=== PATIENT | female | born 1980 | race Caucasian/White ===

== ENCOUNTER 2017-06-08 00:41 | Inpatient (IN) | payer MEDICAID ==
[~2017-06-08] VITALS: Ht 170.2 cm; Wt 80.7 kg
[2017-06-08 01:08] LABS: BASOPHILS # (AUTO) 0.04 K/uL (0.00-0.20); BASOPHILS % (AUTO) 0.6 % (0.0-2.0); EOSINOPHILS # (AUTO) 0.06 K/uL (0.00-0.70); EOSINOPHILS % (AUTO) 0.87 % (1.0-6.0); HEMATOCRIT 35.3 % (36-46); LYMPHOCYTES # (AUTO) 2.4 K/uL (1.0-4.8); LYMPHOCYTES % (AUTO) 36.4 % (22.0-44.0); MEAN CORPUSCULAR HEMOGLOBIN 31.8 pg (26.0-34.0); MEAN CORPUSCULAR HGB CONC 33.9 G/dL (31.0-37.0); MEAN CORPUSCULAR VOLUME 94 fL (80-100); MONOCYTES # (AUTO) 0.4 K/uL (0.1-1.0); MONOCYTES % (AUTO) 6.6 % (2.0-9.0); NEUTROPHILS # (AUTO) 3.6 K/uL (1.8-7.7); NEUTROPHILS % (AUTO) 55.6 % (40.0-70.0); PLATELET COUNT (AUTO) 200 K/uL (150-450); RED BLOOD CELL COUNT(AUTO) 3.76 MIL/uL (4.00-5.20); RED CELL DISTRIBUTION WIDTH 12.8 % (11.5-14.5); WHITE BLOOD COUNT (AUTO) 6.5 K/uL (4.5-11.0)
[2017-06-08 01:19] LABS: ANION GAP 8 mmol/L (8-16); CALCIUM, TOTAL 8.5 mg/dL (8.8-10.5); CARBON DIOXIDE 29 mmol/L (22-29); CHLORIDE 105 mmol/L (98-107); CREATININE 0.71 mg/dL (0.60-1.30); GLOMERULAR FILTR. RATE CALC > 60 mL/min (>60); POTASSIUM 3.2 mmol/L (3.5-5.1); SODIUM SERUM 142 mmol/L (136-145); UREA NITROGEN, BLOOD 9 mg/dL (7-18)
[2017-06-08 01:27] LABS: ALANINE AMINOTRANSFERASE 33 U/L (12-78); ALBUMIN 3.4 g/dL (3.4-5.0); ASPARTATE AMINOTRANSFERASE 25 U/L (15-37); BILIRUBIN,TOTAL 0.4 mg/dL (0.1-1.0); TOTAL PROTEIN, SERUM 6.7 g/dL (6.4-8.2)
[2017-06-08] MEDS ORDERED: HALOPERIDOL LACTATE 5 MG/ML VIAL IM ONE (01:45)
[2017-06-08] MEDS ORDERED: DiphenhydrAMINE HCL 50 MG/ML VIAL IM ONE (01:45)
[2017-06-08] MEDS ORDERED: LORazepam 2 MG/ML VIAL IM ONE (01:45)
[2017-06-08] MEDS: POTASSIUM CHLORIDE 10% 40 MEQ/30 ML LIQUID UDCUP PO ONE ×2 (04:33→04:51)
[2017-06-08] MEDS ORDERED: INFLUENZA VIRUS VACCINE QVS 2017-18 (3YR+)/PF 60 MCG/0.5 ML SYRINGE IM ONE (06:15)
[2017-06-08 06:19] VITALS: BP 108/68
[2017-06-08] MEDS: LORazepam 2 MG TABLET PO PRN (08:36)
[2017-06-08] MEDS: HALOPERIDOL 5 MG TABLET PO PRN (08:36)
[2017-06-08 09:37] VITALS: BP 110/75
[2017-06-08] MEDS ORDERED: HALO5 PO (15:11)
[2017-06-08] MEDS ORDERED: IBUP-1506 PO (15:11)
[2017-06-08] MEDS ORDERED: LORA2TAB2 PO (15:11)
[2017-06-08] MEDS ORDERED: IBUPROFEN 400 MG TABLET PO PRN (15:15)
[2017-06-08] MEDS ORDERED: ACETAMINOPHEN 325 MG TABLET PO PRN (15:15)
[2017-06-08 20:27] VITALS: BP 101/60
[2017-06-09 05:56] VITALS: BP 112/63
[2017-06-09 08:41] VITALS: BP 125/78
[2017-06-09] MEDS: VENLAFAXINE HCL 75 MG ER CAPSULE PO SCH (08:41)
[2017-06-09] MEDS: CEPHALEXIN MONOHYDRATE 500 MG CAPSULE PO SCH ×4 (08:41→21:00)
[2017-06-09] MEDS: LORazepam 2 MG TABLET PO PRN ×2 (08:41→16:23)
[2017-06-09] MEDS: HALOPERIDOL 5 MG TABLET PO PRN (16:23)
[2017-06-09 16:45] VITALS: BP 126/67
[2017-06-10 06:43] VITALS: BP 130/96
[2017-06-10 08:26] VITALS: BP 107/60
[2017-06-10] MEDS: VENLAFAXINE HCL 75 MG ER CAPSULE PO SCH (09:12)
[2017-06-10] MEDS: CEPHALEXIN MONOHYDRATE 500 MG CAPSULE PO SCH ×4 (09:12→21:32)
[2017-06-10 16:41] VITALS: BP 132/76
[2017-06-10] MEDS: HALOPERIDOL 5 MG TABLET PO PRN (17:08)
[2017-06-10] MEDS: LORazepam 2 MG TABLET PO PRN (17:08)
[2017-06-10] MEDS: ZOLPIDEM TARTRATE 10 MG TABLET PO PRN (21:32)
[2017-06-11 06:43] VITALS: BP 126/85
[2017-06-11 08:28] VITALS: BP 103/59
[2017-06-11] MEDS: VENLAFAXINE HCL 75 MG ER CAPSULE PO SCH (09:31)
[2017-06-11] MEDS: CEPHALEXIN MONOHYDRATE 500 MG CAPSULE PO SCH ×4 (09:31→20:27)
[2017-06-11 12:30] VITALS: BP 126/73
[2017-06-11] MEDS: LORazepam 2 MG TABLET PO PRN ×2 (12:37→16:58)
[2017-06-11 16:38] VITALS: BP 122/66
[2017-06-11] MEDS: ZOLPIDEM TARTRATE 10 MG TABLET PO PRN (21:06)
[2017-06-12 04:37] VITALS: BP 121/78
[2017-06-12] MEDS: LORazepam 2 MG TABLET PO PRN ×2 (04:38→10:38)
[2017-06-12] MEDS: CEPHALEXIN MONOHYDRATE 500 MG CAPSULE PO SCH ×2 (08:41→12:26)
[2017-06-12] MEDS: VENLAFAXINE HCL 75 MG ER CAPSULE PO SCH (08:41)
[2017-06-12 08:58] VITALS: BP 119/63
[2017-06-12] MEDS ORDERED: CEPH500 PO (10:28)
[2017-06-12] MEDS ORDERED: VENL-67 PO (10:28)
[2017-06-12] MEDS: HALOPERIDOL 5 MG TABLET PO PRN (11:48)
== END 2017-06-12 13:30 | disposition home or self-care (01) | DRG 751 ==
LOC: EMS 00:43 → EDBD 00:43 → B3A 03:35
PROVIDERS: ADMIT Psychiatry & Neurology Psychiatry; ATTEND Psychiatry & Neurology Psychiatry
DX: F32.2 Major depressive disorder, single episode, severe without psychotic features (principal); R45.851 Suicidal ideations; E87.6 Hypokalemia; Z28.21 Immunization not carried out because of patient refusal; F17.200 Nicotine dependence, unspecified, uncomplicated; Z59.0 Homelessness; Z79.899 Other long term (current) drug therapy; Z71.51 Drug abuse counseling and surveillance of drug abuser; Z71.6 Tobacco abuse counseling; F19.10 Other psychoactive substance abuse, uncomplicated
CPT/HCPCS: 90471; 96372; 99291; G0480; J1200; J1630; J2060

== ENCOUNTER 2017-06-08 14:51 | Emergency (ER) | payer MEDICAID ==
[~2017-06-08] VITALS: Ht 175.3 cm; Wt 59.1 kg
[2017-06-08] MEDS ORDERED: IBUP-1506 PO (15:11)
[2017-06-08] MEDS ORDERED: HALO5 PO (15:11)
[2017-06-08] MEDS ORDERED: LORA2TAB2 PO (15:11)
[2017-06-08] MEDS ORDERED: BACITRACIN 0.9 GM PACKET OINTMENT TP ONE (17:30)
[2017-06-08 19:10] VITALS: BP 118/68
== END 2017-06-08 19:57 | disposition other institution (70) ==
LOC: EMS 14:56
DX: S01.01XA Laceration without foreign body of scalp, initial encounter (principal); F16.90 Hallucinogen use, unspecified, uncomplicated; F17.210 Nicotine dependence, cigarettes, uncomplicated; L08.9 Local infection of the skin and subcutaneous tissue, unspecified; X58.XXXA Exposure to other specified factors, initial encounter; Y93.89 Activity, other specified; Y92.89 Other specified places as the place of occurrence of the external cause; Y99.8 Other external cause status
CPT/HCPCS: 70450; 96372; 99285; J0690

== ENCOUNTER 2017-07-24 06:56 | Emergency (ER) | payer MEDICAID ==
[~2017-07-24] VITALS: Ht 175.3 cm; Wt 100.9 kg
[~2017-07-24 06:56] MED LIST: CEPH500 PO; VENL-67 PO
[2017-07-24] MEDS ORDERED: VITAD1000 PO (07:04)
[2017-07-24 07:45] LABS: BASOPHILS % (AUTO) 0.4 % (0.0-2.0); EOSINOPHILS % (AUTO) 0.9 % (1.0-6.0); HEMATOCRIT 34.8 % (36-46); HEMOGLOBIN 12.1 g/dL (12.0-16.0); LYMPHOCYTES % (AUTO) 24.7 % (22.0-44.0); MEAN CORPUSCULAR HEMOGLOBIN 32.1 pg (26.0-34.0); MEAN CORPUSCULAR HGB CONC 34.9 G/dL (31.0-37.0); MEAN CORPUSCULAR VOLUME 92 fL (80-100); MONOCYTES # (AUTO) 0.5 K/uL (0.1-1.0); MONOCYTES % (AUTO) 6.2 % (2.0-9.0); NEUTROPHILS # (AUTO) 5.4 K/uL (1.8-7.7); NEUTROPHILS % (AUTO) 67.8 % (40.0-70.0); PLATELET COUNT (AUTO) 259 K/uL (150-450); RED BLOOD CELL COUNT(AUTO) 3.77 MIL/uL (4.00-5.20); RED CELL DISTRIBUTION WIDTH 12.8 % (11.5-14.5)
[2017-07-24 07:55] LABS: ANION GAP 7 mmol/L (8-16); CALCIUM, TOTAL 8.9 mg/dL (8.8-10.5); CARBON DIOXIDE 29 mmol/L (22-29); CHLORIDE 105 mmol/L (98-107); CREATININE 0.63 mg/dL (0.60-1.30); GLOMERULAR FILTR. RATE CALC > 60 mL/min (>60); POTASSIUM 3.7 mmol/L (3.5-5.1); SODIUM SERUM 141 mmol/L (136-145); UREA NITROGEN, BLOOD 10 mg/dL (7-18)
[2017-07-24 08:00] LABS: ALANINE AMINOTRANSFERASE 48 U/L (12-78); ALBUMIN 3.5 g/dL (3.4-5.0); ASPARTATE AMINOTRANSFERASE 28 U/L (15-37); BILIRUBIN,TOTAL 0.4 mg/dL (0.1-1.0)
[2017-07-24 09:16] VITALS: BP 123/89
== END 2017-07-24 09:19 | disposition home or self-care (01) ==
LOC: EMS 06:57
DX: F25.9 Schizoaffective disorder, unspecified (principal); R10.84 Generalized abdominal pain; J40 Bronchitis, not specified as acute or chronic; R74.8 Abnormal levels of other serum enzymes; F17.210 Nicotine dependence, cigarettes, uncomplicated; Z71.6 Tobacco abuse counseling; Z59.0 Homelessness; Z79.899 Other long term (current) drug therapy
CPT/HCPCS: 36415; 71010; 80053; 83690; 84703; 85025; 99285; 99406; G0480

== ENCOUNTER 2017-10-07 19:47 | Inpatient (IN) | payer MEDICAID ==
[~2017-10-07] VITALS: Ht 172.7 cm; Wt 81.8 kg
[~2017-10-07 19:47] MED LIST changes: -CEPH500 PO; +VITAD1000 PO
[2017-10-07 20:19] LABS: BASOPHILS % (AUTO) 0.5 % (0.0-2.0); EOSINOPHILS % (AUTO) 0.8 % (1.0-6.0); HEMATOCRIT 40.5 % (36-46); HEMOGLOBIN 13.5 g/dL (12.0-16.0); LYMPHOCYTES # (AUTO) 1.2 K/uL (1.0-4.8); LYMPHOCYTES % (AUTO) 15.9 % (22.0-44.0); MEAN CORPUSCULAR HEMOGLOBIN 31.2 pg (26.0-34.0); MEAN CORPUSCULAR HGB CONC 33.2 G/dL (31.0-37.0); MEAN CORPUSCULAR VOLUME 94 fL (80-100); MONOCYTES # (AUTO) 0.6 K/uL (0.1-1.0); MONOCYTES % (AUTO) 7.1 % (2.0-9.0); NEUTROPHILS # (AUTO) 5.9 K/uL (1.8-7.7); NEUTROPHILS % (AUTO) 75.7 % (40.0-70.0); PLATELET COUNT (AUTO) 236 K/uL (150-450); RED BLOOD CELL COUNT(AUTO) 4.32 MIL/uL (4.00-5.20); RED CELL DISTRIBUTION WIDTH 12.8 % (11.5-14.5)
[2017-10-07 20:32] LABS: ANION GAP 10 mmol/L (8-16); CALCIUM, TOTAL 8.7 mg/dL (8.8-10.5); CARBON DIOXIDE 29 mmol/L (22-29); CHLORIDE 104 mmol/L (98-107); CREATININE 0.74 mg/dL (0.60-1.30); GLOMERULAR FILTR. RATE CALC > 60 mL/min (>60); GLUCOSE,RANDOM 157 mg/dL (70-110); POTASSIUM 3.4 mmol/L (3.5-5.1); SODIUM SERUM 143 mmol/L (136-145); UREA NITROGEN, BLOOD 12 mg/dL (7-18)
[2017-10-07 20:39] LABS: ALANINE AMINOTRANSFERASE 26 U/L (12-78); ALBUMIN 3.1 g/dL (3.4-5.0); ALKALINE PHOSPHATASE 93 U/L (46-116); ASPARTATE AMINOTRANSFERASE 16 U/L (15-37); BILIRUBIN,TOTAL 0.4 mg/dL (0.1-1.0); TOTAL PROTEIN, SERUM 6.8 g/dL (6.4-8.2)
[2017-10-08] MEDS ORDERED: ZOLPIDEM TARTRATE 10 MG TABLET PO PRN (03:15)
[2017-10-08] MEDS ORDERED: HALOPERIDOL LACTATE 5 MG/ML VIAL IM ONE (03:30)
[2017-10-08] MEDS ORDERED: LORazepam 2 MG/ML VIAL IM ONE (03:30)
[2017-10-08] MEDS ORDERED: DiphenhydrAMINE HCL 50 MG/ML VIAL IM ONE (03:30)
[2017-10-08 03:41] LABS: CHOL/HDL RATIO 3.1 (3.9-5.7); CHOLESTEROL 154 mg/dL (131-200); HDL CHOLESTEROL 50 mg/dL (40-60); LDL CHOL (CALC.) 89 mg/dL (0-130); THYROID STIMULATING HORMONE 0.39 uIU/mL (0.36-3.74); TRIGLYCERIDES 77 mg/dL (15-150)
[2017-10-08 05:47] VITALS: BP 104/60
[2017-10-08] MEDS ORDERED: INFLUENZA VIRUS VACCINE QVS 2017-18 (3YR+)/PF 60 MCG/0.5 ML SYRINGE IM ONE (06:00)
[2017-10-08] MEDS ORDERED: BENZOCAINE/MENTHOL LOZENGE MM PRN (10:45)
[2017-10-08] MEDS ORDERED: PETROLATUM,WHITE 71 GM JELLY TP PRN (10:45)
[2017-10-08] MEDS ORDERED: MAGNESIUM HYDROXIDE SUSPENSION 30 ML UDCUP PO PRN (10:45)
[2017-10-08] MEDS ORDERED: ONDANSETRON HCL 4 MG TABLET PO PRN (10:45)
[2017-10-08] MEDS ORDERED: BACITRACIN 28.4 GM OINTMENT TP PRN (10:45)
[2017-10-08] MEDS ORDERED: ALBUTEROL SULFATE HFA 90 MCG/PUFF 8 GM INHALER IH PRN (10:45)
[2017-10-08] MEDS ORDERED: MAG HYDROX/AL HYDROX/SIMETH ES 30 ML SUSPENSION UDCUP PO PRN (10:45)
[2017-10-08] MEDS ORDERED: CloNIDine HCL 0.1 MG TABLET PO PRN (10:45)
[2017-10-08] MEDS ORDERED: IBUPROFEN 600 MG TABLET PO PRN (10:45)
[2017-10-08] MEDS ORDERED: LOPERAMIDE HCL 2 MG CAPSULE PO PRN (10:45)
[2017-10-08] MEDS ORDERED: POTASSIUM CHLORIDE 20 MEQ ER TABLET PO ONE (10:45)
[2017-10-08] MEDS ORDERED: ACETAMINOPHEN 325 MG TABLET PO PRN (10:45)
[2017-10-08] MEDS ORDERED: VENLAFAXINE HCL 75 MG TABLET PO SCH (14:45)
[2017-10-08] MEDS: VENLAFAXINE HCL 75 MG ER CAPSULE PO SCH (15:24)
[2017-10-09 07:13] VITALS: BP 125/68
[2017-10-09 08:12] LABS: HEMOGLOBIN A1C 5.1 % (4.5-6.2)
[2017-10-09 08:39] VITALS: BP 115/77
[2017-10-09] MEDS: VENLAFAXINE HCL 75 MG ER CAPSULE PO SCH (09:49)
[2017-10-09 16:12] VITALS: BP 124/76
[2017-10-09] MEDS: HALOPERIDOL 5 MG TABLET PO PRN (17:05)
[2017-10-09] MEDS: LORazepam 2 MG TABLET PO PRN (17:05)
[2017-10-10 07:12] VITALS: BP 135/78
[2017-10-10 08:26] VITALS: BP 114/75
[2017-10-10] MEDS: VENLAFAXINE HCL 75 MG ER CAPSULE PO SCH (09:16)
[2017-10-10 16:24] VITALS: BP 125/69
[2017-10-10] MEDS: OLANZapine 5 MG TABLET PO SCH (20:07)
[2017-10-11 06:36] VITALS: BP 107/67
[2017-10-11] MEDS: VENLAFAXINE HCL 75 MG ER CAPSULE PO SCH (08:38)
[2017-10-11] MEDS: HALOPERIDOL 5 MG TABLET PO PRN (08:38)
[2017-10-11] MEDS: LORazepam 2 MG TABLET PO PRN (08:38)
[2017-10-11 09:40] VITALS: BP 127/75
[2017-10-11 16:23] VITALS: BP 123/69
[2017-10-11] MEDS: OLANZapine 5 MG TABLET PO SCH (21:09)
[2017-10-12 07:15] VITALS: BP 120/68
[2017-10-12] MEDS: VENLAFAXINE HCL 75 MG ER CAPSULE PO SCH (08:51)
[2017-10-12 09:15] VITALS: BP 130/69
[2017-10-12 16:05] VITALS: BP 126/77
[2017-10-12] MEDS: HALOPERIDOL 5 MG TABLET PO PRN (18:15)
[2017-10-12] MEDS: LORazepam 2 MG TABLET PO PRN (18:16)
[2017-10-12] MEDS: OLANZapine 5 MG TABLET PO SCH (20:39)
[2017-10-13 06:35] VITALS: BP 121/71
[2017-10-13 08:11] VITALS: BP 138/79
[2017-10-13] MEDS: VENLAFAXINE HCL 75 MG ER CAPSULE PO SCH (08:44)
[2017-10-13] MEDS ORDERED: VENL-193 PO (09:46)
[2017-10-13] MEDS ORDERED: OLAN5TAB2 PO (09:46)
== END 2017-10-13 10:54 | disposition home or self-care (01) | DRG 751 ==
LOC: EMS 19:47 → B3A 10-08 03:25
DX: F33.2 Major depressive disorder, recurrent severe without psychotic features (principal); E83.51 Hypocalcemia; R45.851 Suicidal ideations; E87.6 Hypokalemia; F15.10 Other stimulant abuse, uncomplicated; R73.9 Hyperglycemia, unspecified; F17.210 Nicotine dependence, cigarettes, uncomplicated; F25.9 Schizoaffective disorder, unspecified; F41.9 Anxiety disorder, unspecified; G47.00 Insomnia, unspecified; Z59.0 Homelessness; Z28.21 Immunization not carried out because of patient refusal; Z72.89 Other problems related to lifestyle; Z71.41 Alcohol abuse counseling and surveillance of alcoholic; Z71.51 Drug abuse counseling and surveillance of drug abuser; Z71.6 Tobacco abuse counseling
CPT/HCPCS: 82306; 83036; 84132; 84443; 96372; 99285; G0480; J1200; J1630; J2060

== ENCOUNTER 2017-10-20 22:51 | Inpatient (IN) | payer MEDICAID ==
[~2017-10-20] VITALS: Ht 172.7 cm; Wt 81.8 kg
[~2017-10-20 22:51] MED LIST changes: +OLAN5TAB2 PO; +VENL-193 PO; -VENL-67 PO; -VITAD1000 PO
[2017-10-21 04:30] LABS: BASOPHILS % (AUTO) 0.7 % (0.0-2.0); EOSINOPHILS % (AUTO) 2.6 % (1.0-6.0); HEMATOCRIT 37.9 % (36-46); LYMPHOCYTES # (AUTO) 2.7 K/uL (1.0-4.8); LYMPHOCYTES % (AUTO) 42.7 % (22.0-44.0); MEAN CORPUSCULAR HEMOGLOBIN 31.7 pg (26.0-34.0); MEAN CORPUSCULAR HGB CONC 34.2 G/dL (31.0-37.0); MEAN CORPUSCULAR VOLUME 93 fL (80-100); MONOCYTES # (AUTO) 0.4 K/uL (0.1-1.0); MONOCYTES % (AUTO) 6.2 % (2.0-9.0); NEUTROPHILS % (AUTO) 47.8 % (40.0-70.0); PLATELET COUNT (AUTO) 243 K/uL (150-450); RED CELL DISTRIBUTION WIDTH 12.7 % (11.5-14.5)
[2017-10-21 04:37] LABS: ANION GAP 5 mmol/L (8-16); CALCIUM, TOTAL 8.5 mg/dL (8.8-10.5); CARBON DIOXIDE 32 mmol/L (22-29); CHLORIDE 105 mmol/L (98-107); CREATININE 0.73 mg/dL (0.60-1.30); GLOMERULAR FILTR. RATE CALC > 60 mL/min (>60); GLUCOSE,RANDOM 97 mg/dL (70-110); POTASSIUM 4.2 mmol/L (3.5-5.1); SODIUM SERUM 142 mmol/L (136-145); UREA NITROGEN, BLOOD 13 mg/dL (7-18)
[2017-10-21] MEDS ORDERED: KETOROLAC TROMETHAMINE 60 MG/2 ML VIAL IM ONE (04:45)
[2017-10-21] MEDS ORDERED: ACETAMINOPHEN 500 MG TABLET PO ONE (04:45)
[2017-10-21 05:05] LABS: AMPHET/METH SCREEN,URINE POSITIVE (NEGATIVE); BARBITURATE SCREEN, URINE NEGATIVE (NEGATIVE); BENZODIAZEPINES SCREEN,URINE NEGATIVE (NEGATIVE); CANNABINOID SCREEN,URINE POSITIVE (NEGATIVE); COCAINE SCREEN,URINE POSITIVE (NEGATIVE); METHADONE SCREEN, URINE NEGATIVE (NEGATIVE); OPIATE SCREEN,URINE NEGATIVE (NEGATIVE)
[2017-10-21 05:16] LABS: PHENCYCLIDINE SCREEN,URINE POSITIVE (NEGATIVE)
[2017-10-21 05:52] LABS: GLUCOSE,POINT OF CARE 116 MG/DL (70-110)
[2017-10-21 06:06] LABS: CHOL/HDL RATIO 2.7 (3.9-5.7); CHOLESTEROL 138 mg/dL (131-200); HDL CHOLESTEROL 52 mg/dL (40-60); LDL CHOL (CALC.) 69 mg/dL (0-130); TRIGLYCERIDES 86 mg/dL (15-150)
[2017-10-21] MEDS: VENLAFAXINE HCL 75 MG ER CAPSULE PO SCH (11:30)
[2017-10-21] MEDS ORDERED: VENL-67 PO (11:34)
[2017-10-21] MEDS ORDERED: DiphenhydrAMINE HCL 50 MG/ML VIAL IM ONE ×2 (12:30)
[2017-10-21] MEDS ORDERED: HALOPERIDOL LACTATE 5 MG/ML VIAL IM ONE ×2 (12:30)
[2017-10-21] MEDS ORDERED: LORazepam 2 MG/ML VIAL IM ONE ×2 (12:30)
[2017-10-21] MEDS ORDERED: INFLUENZA VIRUS VACCINE QVS 2017-18 (3YR+)/PF 60 MCG/0.5 ML SYRINGE IM ONE (13:00)
[2017-10-21] MEDS ORDERED: IBUPROFEN 600 MG TABLET PO PRN (14:30)
[2017-10-21] MEDS ORDERED: MAG HYDROX/AL HYDROX/SIMETH ES 30 ML SUSPENSION UDCUP PO PRN (14:30)
[2017-10-21] MEDS ORDERED: CloNIDine HCL 0.1 MG TABLET PO PRN (14:30)
[2017-10-21] MEDS ORDERED: ALBUTEROL SULFATE HFA 90 MCG/PUFF 8 GM INHALER IH PRN (14:30)
[2017-10-21] MEDS ORDERED: LOPERAMIDE HCL 2 MG CAPSULE PO PRN (14:30)
[2017-10-21] MEDS ORDERED: PETROLATUM,WHITE 71 GM JELLY TP PRN (14:30)
[2017-10-21] MEDS ORDERED: BACITRACIN 28.4 GM OINTMENT TP PRN (14:30)
[2017-10-21] MEDS ORDERED: ONDANSETRON HCL 4 MG TABLET PO PRN (14:30)
[2017-10-21] MEDS ORDERED: MAGNESIUM HYDROXIDE SUSPENSION 30 ML UDCUP PO PRN (14:30)
[2017-10-21] MEDS ORDERED: ACETAMINOPHEN 325 MG TABLET PO PRN (14:30)
[2017-10-21] MEDS ORDERED: BENZOCAINE/MENTHOL LOZENGE MM PRN (14:30)
[2017-10-21 16:35] VITALS: BP 127/77
[2017-10-21] MEDS: OLANZapine 5 MG TABLET PO SCH (20:15)
[2017-10-22] MEDS: VENLAFAXINE HCL 75 MG ER CAPSULE PO SCH (08:48)
[2017-10-22] MEDS: DOCUSATE SODIUM 100 MG CAPSULE PO SCH (08:49)
[2017-10-22] MEDS: OMEPRAZOLE 20 MG CAPSULE PO SCH (08:49)
[2017-10-22] MEDS: OLANZapine 5 MG TABLET PO SCH ×2 (08:49→20:22)
[2017-10-22] MEDS: NICOTINE 21 MG/24 HOUR PATCH TD SCH (08:49)
[2017-10-22 16:25] VITALS: BP 110/62
[2017-10-22] MEDS: LORazepam 2 MG TABLET PO PRN (16:39)
[2017-10-22] MEDS: HALOPERIDOL 5 MG TABLET PO PRN (16:39)
[2017-10-23 08:20] VITALS: BP 126/67
[2017-10-23] MEDS: VENLAFAXINE HCL 75 MG ER CAPSULE PO SCH (09:00)
[2017-10-23] MEDS: DOCUSATE SODIUM 100 MG CAPSULE PO SCH (09:00)
[2017-10-23] MEDS: OMEPRAZOLE 20 MG CAPSULE PO SCH (09:00)
[2017-10-23] MEDS: NICOTINE 21 MG/24 HOUR PATCH TD SCH (09:00)
[2017-10-23] MEDS: OLANZapine 5 MG TABLET PO SCH ×2 (09:00→20:49)
[2017-10-23] MEDS: HALOPERIDOL 5 MG TABLET PO PRN ×2 (14:15→18:28)
[2017-10-23] MEDS: LORazepam 2 MG TABLET PO PRN ×2 (14:15→18:28)
[2017-10-23 16:00] VITALS: BP 118/68
[2017-10-24 05:43] VITALS: BP 121/78
[2017-10-24] MEDS: NICOTINE 21 MG/24 HOUR PATCH TD SCH (09:33)
[2017-10-24] MEDS: OMEPRAZOLE 20 MG CAPSULE PO SCH (09:34)
[2017-10-24] MEDS: OLANZapine 5 MG TABLET PO SCH ×2 (09:34→20:46)
[2017-10-24] MEDS: LORazepam 2 MG TABLET PO PRN ×2 (09:34→15:49)
[2017-10-24] MEDS: DOCUSATE SODIUM 100 MG CAPSULE PO SCH (09:34)
[2017-10-24] MEDS: VENLAFAXINE HCL 75 MG ER CAPSULE PO SCH (09:34)
[2017-10-24 15:49] VITALS: BP 122/80
[2017-10-24] MEDS: HALOPERIDOL 5 MG TABLET PO PRN (15:49)
[2017-10-24 17:29] VITALS: BP 100/60
[2017-10-25] MEDS: LORazepam 2 MG TABLET PO PRN ×2 (08:20→18:23)
[2017-10-25] MEDS: HALOPERIDOL 5 MG TABLET PO PRN ×2 (08:20→18:23)
[2017-10-25] MEDS: OLANZapine 5 MG TABLET PO SCH ×2 (08:20→21:00)
[2017-10-25] MEDS: VENLAFAXINE HCL 75 MG ER CAPSULE PO SCH (08:20)
[2017-10-25] MEDS: DOCUSATE SODIUM 100 MG CAPSULE PO SCH (08:20)
[2017-10-25] MEDS: OMEPRAZOLE 20 MG CAPSULE PO SCH (08:20)
[2017-10-25 08:33] VITALS: BP 113/76
[2017-10-25] MEDS: NICOTINE 21 MG/24 HOUR PATCH TD SCH (09:03)
[2017-10-25 16:26] VITALS: BP 113/65
[2017-10-25] MEDS: ZOLPIDEM TARTRATE 10 MG TABLET PO PRN (21:00)
[2017-10-26] MEDS: OMEPRAZOLE 20 MG CAPSULE PO SCH (08:28)
[2017-10-26] MEDS: NICOTINE 21 MG/24 HOUR PATCH TD SCH (08:28)
[2017-10-26] MEDS: VENLAFAXINE HCL 75 MG ER CAPSULE PO SCH (08:28)
[2017-10-26] MEDS: DOCUSATE SODIUM 100 MG CAPSULE PO SCH (08:28)
[2017-10-26] MEDS: OLANZapine 5 MG TABLET PO SCH ×2 (08:28→20:48)
[2017-10-26 09:50] VITALS: BP 105/58
[2017-10-26] MEDS: HALOPERIDOL 5 MG TABLET PO PRN (11:54)
[2017-10-26] MEDS: LORazepam 2 MG TABLET PO PRN (11:54)
[2017-10-26 16:17] VITALS: BP 106/64
[2017-10-26] MEDS: ZOLPIDEM TARTRATE 10 MG TABLET PO PRN (20:48)
[2017-10-27 03:11] VITALS: BP 106/71
[2017-10-27 08:41] VITALS: BP 100/53
[2017-10-27 09:00] VITALS: BP 116/68
[2017-10-27] MEDS ORDERED: OLAN5TAB27 PO (09:33)
[2017-10-27] MEDS ORDERED: VENL75CA55 PO (09:33)
[2017-10-27] MEDS: HALOPERIDOL 5 MG TABLET PO PRN (09:44)
[2017-10-27] MEDS: OLANZapine 5 MG TABLET PO SCH (09:44)
[2017-10-27] MEDS: LORazepam 2 MG TABLET PO PRN (09:44)
[2017-10-27] MEDS: NICOTINE 21 MG/24 HOUR PATCH TD SCH (09:44)
[2017-10-27] MEDS: OMEPRAZOLE 20 MG CAPSULE PO SCH (09:44)
[2017-10-27] MEDS: VENLAFAXINE HCL 75 MG ER CAPSULE PO SCH (09:44)
[2017-10-27] MEDS: DOCUSATE SODIUM 100 MG CAPSULE PO SCH (09:44)
[2017-10-27] MEDS ORDERED: OMEP20 PO (11:22)
[2017-10-27] MEDS ORDERED: DSS100 PO (11:22)
== END 2017-10-27 15:28 | disposition home or self-care (01) | DRG 750 ==
LOC: EMS 22:51 → B3A 10-21 08:13
DX: F25.1 Schizoaffective disorder, depressive type (principal); F16.10 Hallucinogen abuse, uncomplicated; G47.00 Insomnia, unspecified; F14.10 Cocaine abuse, uncomplicated; F12.10 Cannabis abuse, uncomplicated; F15.10 Other stimulant abuse, uncomplicated; F10.10 Alcohol abuse, uncomplicated; F41.9 Anxiety disorder, unspecified; F17.210 Nicotine dependence, cigarettes, uncomplicated; Z71.6 Tobacco abuse counseling
CPT/HCPCS: 82962; 99285; G0480; J1200; J1630; J2060